=== PATIENT | male | born 1940 | race Caucasian/White ===

== ENCOUNTER → 2017-10-01 | Outpatient (CLI) | payer MEDICARE | END | disposition home or self-care (01) | LOC: LAB 18:03 | DX: D48.5 Neoplasm of uncertain behavior of skin (principal); L08.9 Local infection of the skin and subcutaneous tissue, unspecified | CPT/HCPCS: 87070; 87106; 87205 ==

== ENCOUNTER 2018-10-04 13:14 | Emergency (ER) | payer MEDICARE ==
[~2018-10-04] VITALS: Ht 175.3 cm; Wt 74.8 kg
[2018-10-04] MEDS ORDERED: ATOR20 (13:25)
[2018-10-04] MEDS ORDERED: METF500C PO (13:25)
[2018-10-04] MEDS ORDERED: PRAZ5 PO (13:25)
[2018-10-04] MEDS ORDERED: ASPI81CH PO (13:31)
[2018-10-04 14:50] LABS: BASOPHILS ABSOLUTE AUTO 0.06 K/mm3 (0.00-0.23); BASOPHILS PERCENT AUTO 1 % (0-2); EOSINOPHILS ABSOLUTE AUTO 0.17 K/mm3 (0.00-0.68); EOSINOPHILS PERCENT AUTO 3 % (0-6); Hematocrit 42.4 % (37.0-53.0); Hemoglobin 14.3 g/dL (13.5-17.5); IMMATURE GRAN ABSOLUTE AUTO 0.01 K/mm3 (0.00-0.10); IMMATURE GRAN PERCENT AUTO 0 % (0-1); LYMPHOCYTES ABSOLUTE AUTO 1.33 K/mm3 (0.84-5.20); LYMPHOCYTES PERCENT AUTO 25 % (21-46); MONOCYTES ABSOLUTE AUTO 0.34 K/mm3 (0.16-1.47); MONOCYTES PERCENT AUTO 6 % (4-13); Mean Corpuscular HGB 34.9 pg (26.0-34.0); Mean Corpuscular HGB Conc 33.7 g/dL (31.5-36.5); Mean Corpuscular Volume 103 fL (80-100); Mean Platelet Volume 10.4 fL (9.1-12.4); NEUTROPHILS ABSOLUTE AUTO 3.45 K/mm3 (1.96-9.15); NEUTROPHILS PERCENT AUTO 64 % (41-73); Platelet Count 122 K/mm3 (150-400); RDW Coefficient Variation 12.6 % (11.7-14.2); RDW Standard Deviation 47.8 fL (35.1-46.3); White Blood Cell Count 5.36 K/mm3 (4.00-11.30)
[2018-10-04 15:16] LABS: Alanine Aminotransfer (ALT/SGP 23 U/L (12-78); Albumin, Blood 3.5 g/dL (3.4-5.0); Alk Phos 80 U/L (50-136); Anion Gap 7 mmol/L (6-16); Aspartate Aminotrans (AST/SGOT 17 U/L (12-37); Bilirubin, Total 0.7 mg/dL (0.1-1.0); Blood Urea Nitrogen 18 mg/dL (8-24); Bun/Creatinine Ratio 16.7 (12.0-20.0); CO2, Blood 26 mmol/L (21-32); Calcium, Blood 8.8 mg/dL (8.5-10.1); Chloride, Blood 107 mmol/L (98-108); Creatinine, Blood 1.08 mg/dL (0.60-1.20); Globulin, Blood 3.4 g/dL (2.2-4.0); Glomerular Filtration Rate >60 (60-); Glucose, Blood 135 mg/dL (70-99); Sodium, Blood 140 mmol/L (136-145); Total Protein, Blood 6.9 g/dL (6.4-8.2)
[2018-10-04] MEDS ORDERED: Percocet 5-3251 EACH PO (16:17)
== END 2018-10-04 17:45 | disposition home or self-care (01) ==
LOC: ER 13:14
PROVIDERS: Emergency Medicine
DX: I63.9 Cerebral infarction, unspecified (principal); Z79.84 Long term (current) use of oral hypoglycemic drugs; Z79.82 Long term (current) use of aspirin; Z79.899 Other long term (current) drug therapy
CPT/HCPCS: 36415; 71045; 74176; 80053; 85025; 96374; 96375; 99284-25; J1170; J1885; J2405; J7120

== ENCOUNTER 2019-11-16 16:40 | Emergency (ER) | payer MEDICARE ==
[~2019-11-16] VITALS: Ht 172.7 cm; Wt 79.4 kg
[~2019-11-16 16:40] MED LIST: ASPI81CH PO; ATOR20; METF500C PO; PRAZ5 PO; Percocet 5-3251 EACH PO
[2019-11-16 17:18] LABS: BASOPHILS ABSOLUTE AUTO 0.04 K/mm3 (0.00-0.23); BASOPHILS PERCENT AUTO 1 % (0-2); EOSINOPHILS ABSOLUTE AUTO 0.13 K/mm3 (0.00-0.68); EOSINOPHILS PERCENT AUTO 2 % (0-6); Hemoglobin 15.7 g/dL (13.5-17.5); IMMATURE GRAN ABSOLUTE AUTO 0.01 K/mm3 (0.00-0.10); IMMATURE GRAN PERCENT AUTO 0 % (0-1); LYMPHOCYTES ABSOLUTE AUTO 2.05 K/mm3 (0.84-5.20); LYMPHOCYTES PERCENT AUTO 37 % (21-46); MONOCYTES PERCENT AUTO 9 % (4-13); Mean Corpuscular HGB 34.7 pg (26.0-34.0); Mean Corpuscular HGB Conc 34.1 g/dL (31.5-36.5); Mean Corpuscular Volume 102 fL (80-100); Mean Platelet Volume 10.8 fL (9.1-12.4); NEUTROPHILS ABSOLUTE AUTO 2.87 K/mm3 (1.96-9.15); NEUTROPHILS PERCENT AUTO 51 % (41-73); Platelet Count 165 K/mm3 (150-400); RDW Coefficient Variation 12.3 % (11.7-14.2); RDW Standard Deviation 46.9 fL (35.1-46.3); Red Blood Cell Count 4.52 M/mm3 (4.30-5.90)
[2019-11-16 17:44] LABS: Alanine Aminotransfer (ALT/SGP 25 U/L (12-78); Albumin, Blood 3.9 g/dL (3.4-5.0); Alk Phos 78 U/L (50-136); Anion Gap 7 mmol/L (6-16); Aspartate Aminotrans (AST/SGOT 19 U/L (12-37); Bilirubin, Total 0.6 mg/dL (0.1-1.0); Blood Urea Nitrogen 21 mg/dL (8-24); Bun/Creatinine Ratio 17.8 (12.0-20.0); CO2, Blood 25 mmol/L (21-32); Chloride, Blood 104 mmol/L (98-108); Creatinine, Blood 1.18 mg/dL (0.60-1.20); Glomerular Filtration Rate >60 (60-); Glucose, Blood 117 mg/dL (70-99); Potassium, Blood 3.7 mmol/L (3.5-5.5); Sodium, Blood 136 mmol/L (136-145); Total Protein, Blood 7.9 g/dL (6.4-8.2); Troponin I <0.015 ng/mL (0.000-0.040)
== END 2019-11-16 18:26 | disposition home or self-care (01) ==
LOC: ER 16:40
PROVIDERS: Physician Assistant
DX: M79.602 Pain in left arm (principal); E11.9 Type 2 diabetes mellitus without complications; I25.10 Atherosclerotic heart disease of native coronary artery without angina pectoris
CPT/HCPCS: 36415; 71046; 80053; 84484; 85025; 93005; 93010; 99285-25

== ENCOUNTER 2021-03-13 07:52 | Emergency (ER) | payer MEDICARE ==
[~2021-03-13] VITALS: Ht 175.3 cm; Wt 79.4 kg
[2021-03-13 08:09] LABS: BASOPHILS ABSOLUTE AUTO 0.05 K/mm3 (0.00-0.23); BASOPHILS PERCENT AUTO 1 % (0-2); EOSINOPHILS ABSOLUTE AUTO 0.13 K/mm3 (0.00-0.68); EOSINOPHILS PERCENT AUTO 1 % (0-6); Hematocrit 40.6 % (37.0-53.0); Hemoglobin 13.8 g/dL (13.5-17.5); IMMATURE GRAN ABSOLUTE AUTO 0.02 K/mm3 (0.00-0.10); IMMATURE GRAN PERCENT AUTO 0 % (0-1); LYMPHOCYTES ABSOLUTE AUTO 1.51 K/mm3 (0.84-5.20); LYMPHOCYTES PERCENT AUTO 16 % (21-46); MONOCYTES ABSOLUTE AUTO 0.64 K/mm3 (0.16-1.47); MONOCYTES PERCENT AUTO 7 % (4-13); Mean Corpuscular HGB 34.4 pg (26.0-34.0); Mean Corpuscular Volume 101 fL (80-100); Mean Platelet Volume 11.2 fL (9.1-12.4); NEUTROPHILS ABSOLUTE AUTO 7.17 K/mm3 (1.96-9.15); NEUTROPHILS PERCENT AUTO 75 % (41-73); Platelet Count 124 K/mm3 (150-400); RDW Coefficient Variation 12.6 % (11.7-14.2); RDW Standard Deviation 47.4 fL (35.1-46.3); Red Blood Cell Count 4.01 M/mm3 (4.30-5.90); White Blood Cell Count 9.52 K/mm3 (4.00-11.30)
[2021-03-13 08:23] LABS: Albumin, Blood 3.5 g/dL (3.4-5.0); Albumin/Globulin Ratio 0.9 (0.8-1.8); Bilirubin, Total 1.2 mg/dL (0.1-1.0); Bun/Creatinine Ratio 15.2 (12.0-20.0); Calcium, Blood 9.2 mg/dL (8.5-10.1); Creatinine, Blood 1.25 mg/dL (0.60-1.20); Globulin, Blood 3.8 g/dL (2.2-4.0); Total Protein, Blood 7.3 g/dL (6.4-8.2)
[2021-03-13] MEDS ORDERED: AMOCLA875 PO (09:32)
== END 2021-03-13 10:05 | disposition home or self-care (01) ==
LOC: ER 07:52
PROVIDERS: Emergency Medicine
DX: K57.32 Diverticulitis of large intestine without perforation or abscess without bleeding (principal); E11.9 Type 2 diabetes mellitus without complications; I25.810 Atherosclerosis of coronary artery bypass graft(s) without angina pectoris; Z95.1 Presence of aortocoronary bypass graft; Z79.82 Long term (current) use of aspirin; Z79.899 Other long term (current) drug therapy
CPT/HCPCS: 74177; 80053; 83690; 85025; 96374-59; 96375; 99284-25; J2405; J3010; Q9967

== ENCOUNTER 2021-04-07 15:53 | Observation (INO) | payer MEDICARE ==
[~2021-04-07] VITALS: Ht 175.3 cm; Wt 80.2 kg
[~2021-04-07 15:53] MED LIST changes: +AMOCLA875 PO
[2021-04-07 17:19] LABS: BASOPHILS ABSOLUTE AUTO 0.07 K/mm3 (0.00-0.23); BASOPHILS PERCENT AUTO 1 % (0-2); EOSINOPHILS ABSOLUTE AUTO 0.04 K/mm3 (0.00-0.68); EOSINOPHILS PERCENT AUTO 0 % (0-6); Hematocrit 38.3 % (37.0-53.0); Hemoglobin 13.1 g/dL (13.5-17.5); IMMATURE GRAN ABSOLUTE AUTO 0.03 K/mm3 (0.00-0.10); IMMATURE GRAN PERCENT AUTO 0 % (0-1); LYMPHOCYTES ABSOLUTE AUTO 0.99 K/mm3 (0.84-5.20); LYMPHOCYTES PERCENT AUTO 9 % (21-46); MONOCYTES PERCENT AUTO 4 % (4-13); Mean Corpuscular HGB 34.6 pg (26.0-34.0); Mean Corpuscular HGB Conc 34.2 g/dL (31.5-36.5); Mean Corpuscular Volume 101 fL (80-100); Mean Platelet Volume 11.3 fL (9.1-12.4); NEUTROPHILS ABSOLUTE AUTO 9.71 K/mm3 (1.96-9.15); NEUTROPHILS PERCENT AUTO 86 % (41-73); Platelet Count 137 K/mm3 (150-400); RDW Standard Deviation 48.2 fL (35.1-46.3); Red Blood Cell Count 3.79 M/mm3 (4.30-5.90); White Blood Cell Count 11.34 K/mm3 (4.00-11.30)
[2021-04-07 17:30] LABS: Alanine Aminotransfer (ALT/SGP 24 U/L (12-78); Albumin, Blood 3.6 g/dL (3.4-5.0); Alk Phos 78 U/L (50-136); Anion Gap 6 mmol/L (6-16); Aspartate Aminotrans (AST/SGOT 24 U/L (12-37); Bilirubin, Total 0.6 mg/dL (0.1-1.0); Blood Urea Nitrogen 20 mg/dL (8-24); Bun/Creatinine Ratio 16.7 (12.0-20.0); CO2, Blood 25 mmol/L (21-32); Calcium, Blood 9.4 mg/dL (8.5-10.1); Chloride, Blood 110 mmol/L (98-108); Globulin, Blood 3.7 g/dL (2.2-4.0); Glomerular Filtration Rate 58 (60-); Glucose, Blood 107 mg/dL (70-99); Sodium, Blood 141 mmol/L (136-145); Total Protein, Blood 7.3 g/dL (6.4-8.2); Troponin I <0.015 ng/mL (0.000-0.040)
[2021-04-08 05:13] LABS: BASOPHILS ABSOLUTE AUTO 0.05 K/mm3 (0.00-0.23); BASOPHILS PERCENT AUTO 1 % (0-2); EOSINOPHILS ABSOLUTE AUTO 0.16 K/mm3 (0.00-0.68); EOSINOPHILS PERCENT AUTO 2 % (0-6); Hematocrit 35.4 % (37.0-53.0); IMMATURE GRAN ABSOLUTE AUTO 0.02 K/mm3 (0.00-0.10); IMMATURE GRAN PERCENT AUTO 0 % (0-1); LYMPHOCYTES ABSOLUTE AUTO 1.63 K/mm3 (0.84-5.20); LYMPHOCYTES PERCENT AUTO 23 % (21-46); MONOCYTES ABSOLUTE AUTO 0.55 K/mm3 (0.16-1.47); MONOCYTES PERCENT AUTO 8 % (4-13); Mean Corpuscular HGB 34.9 pg (26.0-34.0); Mean Corpuscular HGB Conc 33.9 g/dL (31.5-36.5); Mean Corpuscular Volume 103 fL (80-100); Mean Platelet Volume 11.1 fL (9.1-12.4); NEUTROPHILS ABSOLUTE AUTO 4.78 K/mm3 (1.96-9.15); NEUTROPHILS PERCENT AUTO 67 % (41-73); Platelet Count 113 K/mm3 (150-400); RDW Coefficient Variation 13.2 % (11.7-14.2); RDW Standard Deviation 49.4 fL (35.1-46.3); Red Blood Cell Count 3.44 M/mm3 (4.30-5.90); White Blood Cell Count 7.19 K/mm3 (4.00-11.30)
[2021-04-08 05:35] LABS: Anion Gap 6 mmol/L (6-16); Blood Urea Nitrogen 19 mg/dL (8-24); Bun/Creatinine Ratio 16.4 (12.0-20.0); CO2, Blood 25 mmol/L (21-32); Calcium, Blood 8.7 mg/dL (8.5-10.1); Chloride, Blood 112 mmol/L (98-108); Creatinine, Blood 1.16 mg/dL (0.60-1.20); Glomerular Filtration Rate >60 (60-); Glucose, Blood 141 mg/dL (70-99); Potassium, Blood 3.8 mmol/L (3.5-5.5); Sodium, Blood 143 mmol/L (136-145)
--- NOTE | 2021-04-08 06:33 | NUR ---
SHIFT SUMMARY PT WAS A NEW ADMIT DURING THE NIGHT, ARRIVING ON THE FLOOR AT 2109. HE WAS ADMITTED FOR A SYNCOPAL EPISODE. HE IS A&O X 4, SBA TO THE BATHROOM. NO C/O ACUTE PAIN, NAUSEA OR SOB. VITAL SIGNS STABLE. PT RECEIVING 1L NS @ 75 ML/HR. NO ACUTE CHANGES IN PT CONDITION NOTED SINCE ARRIVAL ON THE FLOOR. WILL CONTINUE TO MONITOR AND TREAT PER EMAR UNTIL HAND OFF TO DAY SHIFT RN.
--- NOTE | 2021-04-08 18:33 | NUR ---
SHIFT SUMMARY- PT IS A/O, PLESANT AND COOPERATVIE. ORTH BP WERE TAKEN THIS MORNING. HE WORKED WITH PT AND TOLERATED WELL. WAS AT THE BEDSIDE THIS AFTERNOON AND DR. HOLLOWAY SPOKE WITH HER AND FAMILY. HE IS EATING AND DRINKING WELL. AMBULATING TO THE RESTROOM. HIS BED IS IN THE LOW POSITION AND CALL LIGHT IS WITHIN REACH.
--- NOTE | 2021-04-09 06:29 | NUR ---
SHIFT SUMMARY PT IS AN 80 Y/O MALE, ADMITTED FOR SYNCOPE. HE IS A&O X 4, 1PA TO THE BATHROOM. NO EPISODES OF SYNCOPE NOTED OR NEURO DEFICITS NOTED DURING THE NIGHT. TELE SHOWED AFIB IN THE 80S. VITAL SIGNS STABLE. NO C/O ACUTE PAIN, NAUSEA OR SOB. NO ACUTE CHANGES IN PT CONDITION NOTED DURING THE NIGHT. WILL CONTINUE TO MONITOR AND TREAT PER EMAR UNTIL HAND OFF TO DAY SHIFT RN.
[2021-04-09] MEDS ORDERED: MIRALAX17 GM PO (12:17)
[2021-04-09] MEDS ORDERED: ACET500 PO (12:18)
--- NOTE | 2021-04-09 14:29 | NUR ---
PT TO DISCHARGE HOME. IN ROOM WITH DISCHARGE, NO NEW MEDS. PT TO FOLLOW UP WITH PCP AND NEUROLOGIST . PT DRESSED AND TAKEN DOWN TO CAR AND TAKEN HOME BY . IV REMOVED , NO SS OF INFECTION NOTED.
== END 2021-04-09 13:05 | disposition home health service (06) ==
LOC: ER 15:53 → MEDS 15:54 → EDPENDDIS 04-09 11:32 → ENPENDDIS 04-09 11:32 → MEDS 04-09 13:05
PROVIDERS: Student in an Organized Health Care Education/Training Program; ADMIT Internal Medicine
DX: R29.6 Repeated falls (principal); I08.0 Rheumatic disorders of both mitral and aortic valves; I48.91 Unspecified atrial fibrillation; E11.9 Type 2 diabetes mellitus without complications; I25.10 Atherosclerotic heart disease of native coronary artery without angina pectoris; N40.0 Benign prostatic hyperplasia without lower urinary tract symptoms; E78.5 Hyperlipidemia, unspecified; R01.1 Cardiac murmur, unspecified; I10 Essential (primary) hypertension; R25.1 Tremor, unspecified; I95.9 Hypotension, unspecified; G89.29 Other chronic pain; M54.9 Dorsalgia, unspecified; Z79.84 Long term (current) use of oral hypoglycemic drugs; Z79.82 Long term (current) use of aspirin; Z95.1 Presence of aortocoronary bypass graft; Z66 Do not resuscitate; Z82.0 Family history of epilepsy and other diseases of the nervous system
CPT/HCPCS: 36415; 70450; 80048; 80053; 82550; 82947; 84484; 85025; 93005; 93010; 93306; 97116-CQ; 97162; 97166; 97530; 97535; 99285-25; A9270; J1650; J7030

== ENCOUNTER 2023-06-08 15:17 | Emergency (ER) | payer MEDICARE ==
[~2023-06-08] VITALS: Ht 175.3 cm; Wt 81.7 kg
[~2023-06-08 15:17] MED LIST changes: +ACET500 PO; +MIRALAX17 GM PO
[2023-06-08 15:54] LABS: BASOPHILS ABSOLUTE AUTO 0.08 K/mm3 (0.00-0.23); BASOPHILS PERCENT AUTO 1 % (0-2); EOSINOPHILS ABSOLUTE AUTO 0.17 K/mm3 (0.00-0.68); EOSINOPHILS PERCENT AUTO 3 % (0-6); Hematocrit 40.3 % (37.0-53.0); Hemoglobin 13.7 g/dL (13.5-17.5); IMMATURE GRAN ABSOLUTE AUTO 0.02 K/mm3 (0.00-0.10); IMMATURE GRAN PERCENT AUTO 0 % (0-1); LYMPHOCYTES ABSOLUTE AUTO 1.77 K/mm3 (0.84-5.20); LYMPHOCYTES PERCENT AUTO 30 % (21-46); MONOCYTES ABSOLUTE AUTO 0.41 K/mm3 (0.16-1.47); MONOCYTES PERCENT AUTO 7 % (4-13); Mean Corpuscular HGB 35.5 pg (26.0-34.0); Mean Corpuscular Volume 104 fL (80-100); NEUTROPHILS ABSOLUTE AUTO 3.42 K/mm3 (1.96-9.15); NEUTROPHILS PERCENT AUTO 58 % (41-73); Platelet Count 132 K/mm3 (150-400); RDW Coefficient Variation 12.6 % (11.7-14.2); RDW Standard Deviation 48.3 fL (35.1-46.3); Red Blood Cell Count 3.86 M/mm3 (4.30-5.90); White Blood Cell Count 5.87 K/mm3 (4.00-11.30)
[2023-06-08 16:10] LABS: Magnesium, Blood 2.4 mg/dL (1.6-2.4)
[2023-06-08 16:11] LABS: Albumin, Blood 3.5 g/dL (3.4-5.0); Albumin/Globulin Ratio 1.1 (0.8-1.8); Bun/Creatinine Ratio 18.7 (12.0-20.0); Calcium, Blood 9.5 mg/dL (8.5-10.1); Creatinine, Blood 1.23 mg/dL (0.60-1.20); Globulin, Blood 3.3 g/dL (2.2-4.0); Potassium, Blood 4.1 mmol/L (3.5-5.5); Total Protein, Blood 6.8 g/dL (6.4-8.2)
[2023-06-08 18:00] VITALS: BP 110/69
== END 2023-06-08 18:55 | disposition home or self-care (01) ==
LOC: ER 15:17
PROVIDERS: Emergency Medicine
DX: I48.91 Unspecified atrial fibrillation (principal); R55 Syncope and collapse; E11.9 Type 2 diabetes mellitus without complications; I25.10 Atherosclerotic heart disease of native coronary artery without angina pectoris; Z79.82 Long term (current) use of aspirin; Z79.84 Long term (current) use of oral hypoglycemic drugs
CPT/HCPCS: 80053; 83735; 84484; 85025; 93005; 93010; 99284-25

== ENCOUNTER → 2023-08-26 | Outpatient (CLI) | payer MEDICARE | END | disposition home or self-care (01) | LOC: LAB 10:47 → LAB SHORT 10:47 | DX: L08.9 Local infection of the skin and subcutaneous tissue, unspecified (principal) | CPT/HCPCS: 87070; 87077; 87186; 87205 ==

== ENCOUNTER → 2023-10-29 | Outpatient (CLI) | payer MEDICARE | LOC: LAB SHORT 11:40 → LAB 11:40 | DX: L08.9 Local infection of the skin and subcutaneous tissue, unspecified (principal) | CPT/HCPCS: 87070; 87205 ==

== ENCOUNTER 2023-11-05 06:05 | Day surgery (SDC) | payer MEDICARE ==
[~2023-11-05] VITALS: Ht 175.3 cm; Wt 79.5 kg
[~2023-11-05 06:05] MED LIST changes: -ATOR20; +ATOR20 PO; +Flomax0.4 MG PO
[2023-11-05] MEDS ORDERED: NS 1,000 ML IV ONE (06:37)
[2023-11-05] MEDS ORDERED: Heparin Sodium 1000 Units/ML 10ML MDV ONE (06:37)
[2023-11-05] MEDS ORDERED: CeFAZolin Sodium 1000 mg Vial ONE (06:37)
== END 2023-11-05 22:34 | disposition home or self-care (01) ==
LOC: MHTC 06:05
DX: I48.19 Other persistent atrial fibrillation (principal); I45.5 Other specified heart block; I49.5 Sick sinus syndrome; I35.0 Nonrheumatic aortic (valve) stenosis; I25.810 Atherosclerosis of coronary artery bypass graft(s) without angina pectoris; R55 Syncope and collapse; Z53.9 Procedure and treatment not carried out, unspecified reason
CPT/HCPCS: J0690; J1644; J7040

== ENCOUNTER → 2024-01-15 | Outpatient (CLI) | payer MEDICARE ==
[2024-01-22 23:08] LABS: HOURS COLLECTED Random hr; TOTAL PROTEIN,URINE-PER VOLUME 10 mg/dL; TOTAL VOLUME Random mL
== END ==
LOC: LAB SHORT 11:55 → LAB 11:55 → LAB FUT 01-11 13:10
PROVIDERS: Physician Assistant Medical
DX: D75.89 Other specified diseases of blood and blood-forming organs (principal)
CPT/HCPCS: 84156; 84166; 86335

== ENCOUNTER 2024-04-14 15:37 | Emergency (ER) | payer MEDICARE ==
[~2024-04-14] VITALS: Ht 175.3 cm; Wt 83.9 kg
[~2024-04-14 15:37] MED LIST changes: +ATOR40TA PO; +Aspir 8181 MG PO; +ELIQUIS2.5 MG PO; +METF500 PO; +METO25 PO; +METO50ER PO; +MULVITA PO; +TAMS.4ER PO
[2024-04-14] MEDS ORDERED: FentaNYL Citrate 50 MCG/ML 2 ML Injection IV ONE (16:00)
[2024-04-14 16:05] LABS: BASOPHILS ABSOLUTE AUTO 0.08 K/mm3 (0.00-0.23); BASOPHILS PERCENT AUTO 1 % (0-2); EOSINOPHILS PERCENT AUTO 7 % (0-6); Hematocrit 40.7 % (37.0-53.0); Hemoglobin 13.8 g/dL (13.5-17.5); IMMATURE GRAN ABSOLUTE AUTO 0.01 K/mm3 (0.00-0.10); IMMATURE GRAN PERCENT AUTO 0 % (0-1); LYMPHOCYTES ABSOLUTE AUTO 1.69 K/mm3 (0.84-5.20); LYMPHOCYTES PERCENT AUTO 22 % (21-46); MONOCYTES ABSOLUTE AUTO 0.52 K/mm3 (0.16-1.47); MONOCYTES PERCENT AUTO 7 % (4-13); Mean Corpuscular HGB 33.8 pg (26.0-34.0); Mean Corpuscular HGB Conc 33.9 g/dL (31.5-36.5); Mean Corpuscular Volume 100 fL (80-100); Mean Platelet Volume 10.7 fL (9.1-12.4); NEUTROPHILS ABSOLUTE AUTO 4.84 K/mm3 (1.96-9.15); NEUTROPHILS PERCENT AUTO 64 % (41-73); Platelet Count 149 K/mm3 (150-400); Red Blood Cell Count 4.08 M/mm3 (4.30-5.90); White Blood Cell Count 7.64 K/mm3 (4.00-11.30)
[2024-04-14 16:22] LABS: Albumin, Blood 3.2 g/dL (3.4-5.0); Albumin/Globulin Ratio 0.8 (0.8-1.8); Bilirubin, Total 1.5 mg/dL (0.1-1.0); Bun/Creatinine Ratio 19.6 (12.0-20.0); Creatinine, Blood 1.07 mg/dL (0.60-1.20); Globulin, Blood 3.9 g/dL (2.2-4.0); Potassium, Blood 4.3 mmol/L (3.5-5.5); Total Protein, Blood 7.1 g/dL (6.4-8.2)
[2024-04-14] MEDS ORDERED: Acetaminophen 500 MG Tab PO ONE (17:55)
[2024-04-14] MEDS ORDERED: OxyCODONE HCL 5 MG TAB PO ONE (17:55)
[2024-04-14] MEDS ORDERED: Acetaminophen 500 MG Tab PO PRN (19:45)
[2024-04-14] MEDS ORDERED: Lidocaine 4% 1 Patch TOP SCH (19:45)
[2024-04-14] MEDS ORDERED: Apixaban 5 MG Tab PO SCH (21:00)
[2024-04-15] MEDS ORDERED: Metoprolol Succinate 25 MG TABCR PO SCH (09:00)
[2024-04-15] MEDS ORDERED: Tamsulosin HCl 0.4 MG Cap PO SCH (09:00)
[2024-04-15] MEDS ORDERED: Atorvastatin 10 MG Tab PO SCH (09:00)
[2024-04-15 12:30] VITALS: BP 132/92
== END 2024-04-15 12:35 | disposition home or self-care (01) ==
LOC: ER 15:37
PROVIDERS: Emergency Medicine
DX: M54.50 Low back pain, unspecified (principal); G89.29 Other chronic pain; R53.1 Weakness; I48.91 Unspecified atrial fibrillation; E11.9 Type 2 diabetes mellitus without complications; Z79.84 Long term (current) use of oral hypoglycemic drugs; Z79.899 Other long term (current) drug therapy
CPT/HCPCS: 72131; 80053; 85025; A9270; J3010

== ENCOUNTER 2024-09-21 12:26 | Emergency (ER) | payer MEDICARE ==
[~2024-09-21] VITALS: Ht 175.3 cm; Wt 81.7 kg
[2024-09-21 13:49] LABS: BASOPHILS ABSOLUTE AUTO 0.04 K/mm3 (0.00-0.23); BASOPHILS PERCENT AUTO 1 % (0-2); EOSINOPHILS ABSOLUTE AUTO 0.04 K/mm3 (0.00-0.68); EOSINOPHILS PERCENT AUTO 1 % (0-6); Hematocrit 40.9 % (37.0-53.0); Hemoglobin 13.9 g/dL (13.5-17.5); IMMATURE GRAN ABSOLUTE AUTO 0.01 K/mm3 (0.00-0.10); IMMATURE GRAN PERCENT AUTO 0 % (0-1); LYMPHOCYTES PERCENT AUTO 19 % (21-46); MONOCYTES ABSOLUTE AUTO 0.52 K/mm3 (0.16-1.47); MONOCYTES PERCENT AUTO 14 % (4-13); Mean Corpuscular HGB 34.8 pg (26.0-34.0); Mean Corpuscular Volume 102 fL (80-100); Mean Platelet Volume 10.9 fL (9.1-12.4); NEUTROPHILS ABSOLUTE AUTO 2.32 K/mm3 (1.96-9.15); NEUTROPHILS PERCENT AUTO 64 % (41-73); Platelet Count 157 K/mm3 (150-400); RDW Coefficient Variation 13.2 % (11.7-14.2); RDW Standard Deviation 50.5 fL (35.1-46.3); White Blood Cell Count 3.63 K/mm3 (4.00-11.30)
[2024-09-21 14:16] LABS: Albumin, Blood 3.5 g/dL (3.4-5.0); Albumin/Globulin Ratio 0.8 (0.8-1.8); Bilirubin, Total 0.7 mg/dL (0.1-1.0); Bun/Creatinine Ratio 17.1 (12.0-20.0); Calcium, Blood 9.7 mg/dL (8.5-10.1); Creatinine, Blood 1.17 mg/dL (0.60-1.20); Globulin, Blood 4.2 g/dL (2.2-4.0); Potassium, Blood 3.8 mmol/L (3.5-5.5); Total Protein, Blood 7.7 g/dL (6.4-8.2)
[2024-09-21 20:45] VITALS: BP 125/68
== END 2024-09-21 20:45 | disposition home or self-care (01) ==
LOC: ER 12:26
PROVIDERS: Physician Assistant
DX: J06.9 Acute upper respiratory infection, unspecified (principal); E11.9 Type 2 diabetes mellitus without complications; I48.91 Unspecified atrial fibrillation; Z79.84 Long term (current) use of oral hypoglycemic drugs; Z79.899 Other long term (current) drug therapy; Z91.048 Other nonmedicinal substance allergy status
CPT/HCPCS: 71046; 80053; 85025; 99284-25